=== PATIENT | male | born 1990 | race African-American/Black ===

== ENCOUNTER 2020-01-16 02:17 | Emergency (ER) | payer MEDICAID, OTHER ==
[~2020-01-16] VITALS: Ht 175.3 cm; Wt 70.5 kg
[2020-01-16 02:45] VITALS: BP 120/70
[2020-01-16] MEDS ORDERED: AZITHROMYCIN 500 MG TABLET PO ONE (03:00)
[2020-01-16] MEDS ORDERED: CEFTRIAXONE SODIUM 250 MG/VIAL IM ONE (03:00)
== END 2020-01-16 03:40 | disposition home or self-care (01) ==
LOC: ER 02:21
DX: Z20.2 Contact with and (suspected) exposure to infections with a predominantly sexual mode of transmission (principal); Z91.018 Allergy to other foods
CPT/HCPCS: 96372; 99283; J0696